=== PATIENT | female | born 1950 | race Caucasian/White ===

== ENCOUNTER 2017-03-07 05:29 | Day surgery (SDC) | payer MEDICARE ==
[~2017-03-07] VITALS: Ht 167.6 cm; Wt 84.7 kg
[2017-03-07] MEDS ORDERED: LACTATED RINGERS 1,000 ML IV SCH (06:07)
[2017-03-07] MEDS ORDERED: LIDOCAINE 1%, 2ML SQ PRN (06:30)
[2017-03-07 06:48] VITALS: BP 131/78
[2017-03-07] MEDS ORDERED: BUPIVACAINE/PF-EPI 0.5% 1:200K ONE (06:55)
[2017-03-07 06:59] LABS: ASPARTATE AMINO TRANSFERASE 19 U/L (15-37); BLOOD UREA NITROGEN 19 mg/dL (7-18)
[2017-03-07] MEDS ORDERED: METF500T4 PO (07:08)
[2017-03-07] MEDS ORDERED: IBUP-1222 PO (07:08)
[2017-03-07] MEDS ORDERED: ATEN25TA PO (07:08)
[2017-03-07] MEDS ORDERED: LEVO100T5 PO (07:08)
[2017-03-07] MEDS ORDERED: HYDR25TA6 PO (07:08)
[2017-03-07] MEDS ORDERED: DIPH25CA61 PO (07:08)
[2017-03-07] MEDS ORDERED: INSU100I13 SQ (07:08)
[2017-03-07] MEDS ORDERED: GLIM4TAB2 PO (07:08)
[2017-03-07] MEDS ORDERED: RAMI10CA PO (07:08)
[2017-03-07] MEDS ORDERED: KETAMINE 10 MG/ML, 20ML ONE (07:15)
[2017-03-07] MEDS ORDERED: FENTANYL PF 250 MCG/5ML ONE (07:15)
[2017-03-07] MEDS ORDERED: MIDAZOLAM 1 MG/ML, 2ML ONE (07:15)
[2017-03-07] MEDS ORDERED: BUPIVACAINE/PF 0.25% ONE (07:39)
[2017-03-07] MEDS ORDERED: SUCCINYLCHOLINE 20 MG/ML, 10ML ONE (07:52)
[2017-03-07] MEDS ORDERED: PROPOFOL 10 MG/ML, 20ML ONE (07:52)
[2017-03-07] MEDS ORDERED: DEXAMETHASONE 4 MG/ML, 1ML ONE (07:52)
[2017-03-07] MEDS ORDERED: EPHEDRINE 50 MG/ML, 1ML ONE (07:52)
[2017-03-07] MEDS ORDERED: CEFAZOLIN 1,000 MG ONE (07:52)
[2017-03-07] MEDS ORDERED: ONDANSETRON 2MG/ML, 2ML ONE (07:52)
[2017-03-07] MEDS ORDERED: BALANCED SALT OPHTH IRRIG SOLN 18ML ONE (08:58)
[2017-03-07] MEDS ORDERED: BACITRACIN 50,000 UNIT ONE (09:07)
[2017-03-07] MEDS ORDERED: HYDROmorphone 1 MG/ML, 1ML IV PRN (09:30)
[2017-03-07] MEDS ORDERED: FENTANYL PF 100 MCG/2ML IV PRN (09:30)
[2017-03-07] MEDS ORDERED: OXYcodone 5 MG/5 ML ORAL.SOL UDC PO PRN (09:30)
[2017-03-07] MEDS ORDERED: PROMETHAZINE 25 MG/ML, 1ML IV PRN (09:30)
[2017-03-07] MEDS ORDERED: OXYcodone IR 5MG TABLET ONE (12:17)
[2017-03-07] MEDS ORDERED: OXYcodone IR 5MG TABLET PO ONE (12:30)
== END 2017-03-07 12:30 ==
LOC: OUT 05:29
PROVIDERS: ATTEND Orthopaedic Surgery
DX: D17.39 Benign lipomatous neoplasm of skin and subcutaneous tissue of other sites (principal); I10 Essential (primary) hypertension; E03.9 Hypothyroidism, unspecified; E11.9 Type 2 diabetes mellitus without complications; E66.9 Obesity, unspecified; Z68.30 Body mass index [BMI] 30.0-30.9, adult; Z87.891 Personal history of nicotine dependence; Z88.5 Allergy status to narcotic agent
CPT/HCPCS: 26113; 36415; 80053; 82962; 88304; 93005; J0330; J0690; J1100; J2250; J2405; J2704; J3010; J3490; J7120